=== PATIENT | female | born 1995 | race Caucasian/White ===

== ENCOUNTER 2025-05-08 13:36 | Emergency (ER) | payer SELFPAY ==
[2025-05-08] MEDS ORDERED: diphenhydrAMINE 50 MG/ML VIAL ONE (13:53)
[2025-05-08] MEDS ORDERED: Famotidine 20 MG TAB ONE ×2 (13:53→13:55)
[2025-05-08] MEDS ORDERED: predniSONE 20 MG TAB ONE (13:53)
== END 2025-05-08 14:24 | disposition home or self-care (01) ==
LOC: BURERS 13:36
DX: T63.441A Toxic effect of venom of bees, accidental (unintentional), initial encounter (principal); L03.012 Cellulitis of left finger; J45.909 Unspecified asthma, uncomplicated; Z79.51 Long term (current) use of inhaled steroids
CPT/HCPCS: 96372; 99282; J1200; J1885; J7512